=== PATIENT | female | born 1975 | race Caucasian/White ===

== ENCOUNTER → 2023-01-29 11:24 | Outpatient (BNVA) | payer OTHER, SELFPAY | PROVIDERS: PCP Family Medicine; Visit Provider Family Medicine | DX: Z86.79 Personal history of other diseases of the circulatory system (principal); G43.909 Migraine, unspecified, not intractable, without status migrainosus; Z13.6 Encounter for screening for cardiovascular disorders; I10 Essential (primary) hypertension | CPT/HCPCS: 80053; 80061; 83036; 84443; 85025 ==

== ENCOUNTER → 2023-03-01 15:44 | Outpatient (BNVA) | payer OTHER, SELFPAY | PROVIDERS: PCP Family Medicine; Visit Provider Family Medicine | DX: Z01.419 Encounter for gynecological examination (general) (routine) without abnormal findings (principal) | CPT/HCPCS: 87624 ==

== ENCOUNTER 2023-03-06 13:05 | Outpatient (CLI) | payer OTHER, SELFPAY ==
--- NOTE | 2023-03-06 13:12 | MM_ITS ---
WS: [id number] Bilateral screening 3D tomosynthesis digital mammogram, 03/06/2023 Clinical Data: screening Comparison: None. Findings: The breast parenchymal pattern shows fibroglandular tissue. In the central portion of the right breas t 14 cm posterior to the nipple there are clustered calcifications. No spiculated masses or clustered calcifications are seen in the left breast. There are no secondary signs of carcinoma. There are lym ph nodes in both axilla. Impression: 1. Central clustered calcifications in the right breast 14 cm posterior to the nipple and recommend r ight breast ultrasound. 2. Negative left breast. MM/[place] [id number] BIRADS: 0-Incomplete: Need additional imaging evaluation FOLLOW UP: See Report The CAD fruit checker was used.
== END 2023-03-06 13:06 | disposition home or self-care (01) ==
LOC: RAD 13:06
PROVIDERS: PCP Family Medicine; Visit Provider Family Medicine
DX: Z12.31 Encounter for screening mammogram for malignant neoplasm of breast (principal)
CPT/HCPCS: 77063; 77067

== ENCOUNTER 2023-04-04 08:44 | Outpatient (CLI) | payer OTHER, SELFPAY ==
--- NOTE | 2023-04-04 08:57 | US_ITS ---
WS: [id number] Right breast ultrasound, 04/04/2023 Clinical Data: breast mass Comparison: Mammogram, 03/06/2023 Findings: The ultrasound of the right breast revealed no masses. Only normal breast tissue could be seen. The c lustered calcifications were not identified on this examination. Impression: 1. Negative right breast ultrasound. 2. Central right breast calcifications, recommend biopsy. US/US breast RT limited* [id number] BIRADS: 4-Suspicious Finding-Biopsy Should Be Considered FOLLOW UP: See Report
== END 2023-04-04 08:45 | disposition home or self-care (01) ==
PROVIDERS: PCP Family Medicine; Visit Provider Family Medicine
DX: R92.8 Other abnormal and inconclusive findings on diagnostic imaging of breast (principal); R92.1 Mammographic calcification found on diagnostic imaging of breast
CPT/HCPCS: 76642

== ENCOUNTER 2023-05-07 08:06 | Outpatient (CLI) | payer OTHER, SELFPAY ==
--- NOTE | 2023-05-07 08:11 | MM_ITS ---
WS: [id number] ADDITIONAL VIEWS RIGHT MAMMOGRAM WITH DIGITAL BREAST TOMOSYNTHESIS. RIGHT BREAST ULTRASOUND HISTORY: R ABN MAMMO COMPARISON: 03/06/2023 RIGHT MAMMOGRAM: Magnification views and true ML with digital breast tomosynthesis and SM. There is a dense cluster of calcifications in the posterior RIGHT breast just central to the nipple. These are very coarse calcifications with questionable associated soft tissue mass. Favor these are p robably fibroadenoma related. Cluster of calcifications measures 2.0 x 1.0 cm. Ultrasound to be attem pted. RIGHT BREAST ULTRASOUND 2-D and color Doppler imaging submitted. Calcifications are not identified by ultrasound. There is no associated soft tissue mass identified a long the posterior chest wall. IMPRESSION: MM/[place] [id number] BI-RADS: 3-Probably Benign FOLLOW UP: 6 Month Follow-up Strongly favor these calcifications are benign and may be related to a fibroade noma. These calcifications or associated soft tissue masses identified by ultra sound. Suggest 6-month diagnostic mammographic follow-up of the RIGHT breast. T his will be necessary to ensure stability is of these most likely benign calcif ications.
--- NOTE | 2023-05-07 08:46 | US_ITS ---
WS: [id number] ADDITIONAL VIEWS RIGHT MAMMOGRAM WITH DIGITAL BREAST TOMOSYNTHESIS. RIGHT BREAST ULTRASOUND HISTORY: R ABN MAMMO COMPARISON: 03/06/2023 RIGHT MAMMOGRAM: Magnification views and true ML with digital breast tomosynthesis and SM. There is a dense cluster of calcifications in the posterior RIGHT breast just central to the nipple. These are very coarse calcifications with questionable associated soft tissue mass. Favor these are p robably fibroadenoma related. Cluster of calcifications measures 2.0 x 1.0 cm. Ultrasound to be attem pted. RIGHT BREAST ULTRASOUND 2-D and color Doppler imaging submitted. Calcifications are not identified by ultrasound. There is no associated soft tissue mass identified a long the posterior chest wall. IMPRESSION: US/US breast RT limited* [id number] BI-RADS: 3-Probably Benign FOLLOW UP: 6 Month Follow-up Strongly favor these calcifications are benign and may be related to a fibroade noma. These calcifications or associated soft tissue masses identified by ultra sound. Suggest 6-month diagnostic mammographic follow-up of the RIGHT breast. T his will be necessary to ensure stability is of these most likely benign calcif ications.
== END 2023-05-07 08:07 | disposition home or self-care (01) ==
LOC: RAD 08:07
PROVIDERS: PCP Family Medicine; Visit Provider Family Medicine
DX: R92.1 Mammographic calcification found on diagnostic imaging of breast (principal)
CPT/HCPCS: 76642; 77061; G0279

== ENCOUNTER 2023-05-27 18:27 | Inpatient (IN) | payer OTHER, SELFPAY ==
[2023-05-27] VITALS (10 sets, daily range): BP systolic 106–176; BP diastolic 65–101; PULSE 103–130; RESP 16–32; TEMP 37.2; O2SAT 95–100; BMI 42.4
--- NOTE | 2023-05-27 18:38 | ECG_ITS ---
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 Measurements Intervals [place] Rate: 122 P: 55 WV: 140 QRS: 35 QRSD: 85 T: 64 QT: 337 QTc: 481 Interpretive Statements SINUS TACHYCARDIA NONSPECIFIC ST & T-WAVE ABNORMALITY No previous ECG available for comparison Electronically Signed On 05-27-2023 23:51:38 CDT by Avtar Truong M.D. [id number] f
--- NOTE | 2023-05-27 18:42 | W.ED.CHESTPA ---
HPI - Chest Pain General: Chief Complaint: Chest Pain Stated Complaint: Sob chest pressure Time Seen by Provider: 05/27/23 18:37 History of Present Illness: 48-year-old female presents to the emergency department with complaints of chest pain. She recently lost her spouse and has had significant increase in life stressors dealing with her family. Patient states that she started having substernal chest pain that started approximately 1400 this afternoon and is continued since that time. She denies nausea, dizziness or lightheaded feeling. She states she did feel like her heart was racing and skipping beats at that time. She states that she did feel short of breath at that time of her chest pain. She describes her chest pain as a 5 out of 10 at present. She states that nothing seems to make the pain better and nothing seems to make the pain worse. Associated symptoms: Reports dyspnea and palpitations Review of Systems General: Reports: 10 or more systems reviewed and unremarkable except in HPI and below Card: Reports: chest pain and palpitations Resp: Reports: dyspnea; Denies: non-productive cough or wheezing Psych: Reports: anxiety and depression PFSH ED PFSH: Medical History Eczema History of posttraumatic stress disorder (PTSD) History of hypertension History of hemorrhoids History of renal stone x 7 Surgical History Hx of hemorrhoidectomy History of myomectomy History of delivery x 3 Family History Grandfather Diabetes mellitus, type 2 Heart disease Hypertension Grandmother Heart disease Hypertension Father Colon cancer Mother Diabetes Social History Smoking and tobacco/nicotine status: never used tobacco/nicotine Alcohol intake: never Substance/Drug Use: never Household members: spouse Housing: House Marital status: Highest education level completed: Associate Degree: Occupational, Technical, Vocational Program Physical Exam Narrative: EXAM NARRATIVE: Constitutional: the patient appears well nourished and of normal development. Vital signs as documented. No acute distress at present. Alert and oriented-to person, place, time and situation. Head, eyes, ears, nose, mouth, throat: Normocephalic, atraumatic. Pupils-equal, round, reactive to light. No scleral icterus. Normal-appearing external ears. Normal appearing nasal turbinates, no drainage. No obvious oral lesions, posterior oropharynx without erythema or exudates. Neck: Supple, trachea is midline, no lymphadenopathy, no jugular venous distension, thyromegaly, or carotid bruits. Carotid upstrokes are brisk bilaterally. Lungs: clear to auscultation to all lung [place]. Symmetrical rise and fall of chest, no obvious signs of increased work of breathing at present. Cardiac: Sinus tachycardia, positive S1, S2. No murmurs, rubs or gallops that I can appreciate Abdomen: Soft, non-tender to palpation, normal active bowel sounds to all quadrants. No palpable masses, no organomegaly and abdominal bruits. Extremities: 2+ pulses in the upper extremities that are equal bilaterally, 2+ pulses in the lower extremities that are equal bilaterally. Non-edematous. Moves all extremities well, sensation to all extremities are noted. Skin: Warm, dry, intact. Psych: Tearful, anxious, Course Vital Signs: Vital signs: Vital Signs Temperature 98.9 F 05/27/23 18:38 Pulse Rate 118 H 05/27/23 22:00 Respiratory Rate 21 H 05/27/23 22:00 Blood Pressure 141/81 05/27/23 22:00 Pulse Oximetry 97 05/27/23 22:00 Oxygen Delivery Me thod Room Air 05/27/23 21:30 MDM - Chest Pain Medical Decision Making Physical exam completed and documented, I did obtain a CBC and a CMP which were essentially normal, serial cardiac enzymes did demonstrate a 2-hour delta of 14, the patient did receive Ativan, cardiac dose aspirin, nitroglycerin sublingually as well as nitroglycerin paste. Patient was also provided IV bolus heparin as well as a heparin drip and a chest x-ray. I have contacted the hospitalist requested admission and he is excepted the patient for additional evaluation treatment and care. Medical Records I reviewed the patient's medical records. Lab Data I reviewed the patient's lab results. 05/27/23 18:37 05/27/23 18:37 Laboratory Results WBC 8.22 10^3/uL (3.29-11.43) 05/27/23 18:37 RBC 5.12 10^6/uL (3.85-5.65) 05/27/23 18:37 Hgb 15.00 g/dL (11.27-16.99) 05/27/23 18:37 Hct 44.9 % (36-47) 05/27/23 18:37 MCV 87.7 fl (85-98) 05/27/23 18:37 MCH 29.3 pg (27-33) 05/27/23 18: MCHC 33.4 g/dL (30-55) 05/27/23 18:37 RDW 12.4 % (12.1-15.1) 05/27/23 18:37 Plt Count 297 10^3/cmm (157-399) 05/27/23 18:37 MPV 10.0 fL (7.4-10.4) 05/27/23 18:37 Neut % (Auto) 77.7 % 05/27/23 18:37 Lymph % (Auto) 14.5 % 05/27/23 18:37 [place] % (Auto) 5.5 % 05/27/23 18:37 Eos % (Auto) 1.8 % 05/27/23 18:37 Baso % (Auto) 0.4 % 05/27/23 18:37 Neut # (Auto) 6.39 10^3/uL (1.8-7.7) 05/27/23 18: Lymph # (Auto) 1.2 10^3/uL (0.8-4.8) 05/27/23 18:37 [place] # (Auto) 0.5 10^3/uL (0.2-0.9) 05/27/23 18:37 Eos # (Auto) 0.2 10^3/uL (0.0-0.8) 05/27/23 18:37 Baso # (Auto) 0.0 10^3/uL (0.0-0.1) 05/27/23 18: Nucleated RBC % (auto) 0 % 05/27/23 18: Nucleated RBCs # 0.0 /100WBC 05/27/23 18:37 D-Dimer 0.54 ug/mLFEU (0-0.59) 05/27/23 15:39 Sodium 139 mmol/L (136-145) 05/27/23 18:37 Potassium 3.8 mmol/L (3.5-5.1) 05/27/23 18:37 Chloride 102 mmol/L (98-107) 05/27/23 18:37 Carbon Dioxide 23 mmol/L (22-29) 05/27/23 18:37 Anion Gap 17.8 (5-19) 05/27/23 18:37 BUN 13 mg/dL (6-20) 05/27/23 18:37 Creatinine 0.7 mg/dL (0.5-0.9) 05/27/23 18:37 GFR Calculation 89.3 mL/min (90-130) L 05/27/23 18:37 Glucose 200 mg/dL (65-115) H 05/27/23 18:37 Calculated Osmolality 294 mOsm/kg (285-295) 05/27/23 18:37 Calcium 9.9 mg/dL (8.5-10.5) 05/27/23 18:37 Total Bilirubin 0.3 mg/dL (0.15-1.2) 05/27/23 18:37 AST 12 U/L (0-32) 05/27/23 18:37 ALT 16 U/L (0-33) 05/27/23 18:37 Alkaline Phosphatase 95 U/L (35-105) 05/27/23 18:37 Troponin T Baseline 32 ng/L (0-10) H 05/27/23 18:37 Troponin T 120 Minute 46.46 ng/L (0-10) H 05/27/23 20:34 Delta Troponin T 14.46 ABS# (0-10) H* 05/27/23 20:34 NT-Pro-B Natriuret Pep 108 pg/mL (0-125) 05/27/23 18:37 Total Protein 7.7 g/dL (6.6-8.7) 05/27/23 18:37 Albumin 4.4 g/dL (3.5-5.2) 05/27/23 18:37 Globulin 3.3 g/dL (1.3-4.6) 05/27/23 18:37 All radiology interpretation(s) finalized by discharge EKG Data EKG 1: Interpretation: Twelve-lead EKG obtained at 1832 and reviewed at 1835 demonstrates sinus tachycardia with a ventricular rate of 122 bpm, AZ interval 140 QRS duration 85 QT 337 QTc 410. There is no ST elevation or depression to demonstrate acute ischemia or infarction at present. EKG 2: Interpretation: Twelve-lead EKG obtained at 2036 and reviewed at 2039 demonstrates sinus tachycardia with a ventricular rate of 117 bpm, AZ interval 156 QRS duration 102, QT 333, QTc [address] elevation or depression to demonstrate acute ischemia or infarction at present. Discharge Plan Discharge Patient Disposition: Admitted As Inpatient Clinical Impression: Acute non-ST elevation myocardial infarction (NSTEMI) Condition: Stable Coding Level of Care Code ED Utilization Management Manager for Joi Kelley
[2023-05-27 18:45] LABS: Basophils % 0.4 %; Eosinophils # 0.2 10^3/uL (0.0-0.8); Eosinophils % 1.8 %; Hematocrit 44.9 % (36-47); Lymphocytes # 1.2 10^3/uL (0.8-4.8); Lymphocytes % 14.5 %; Mean Corpuscular HGB Conc 33.4 g/dL (30-55); Mean Corpuscular Hemoglobin 29.3 pg (27-33); Mean Corpuscular Volume 87.7 fl (85-98); Monocytes # 0.5 10^3/uL (0.2-0.9); Monocytes % 5.5 %; Neutrophils # 6.39 10^3/uL (1.8-7.7); Neutrophils % 77.7 %; Nucleated Red Blood Cells % 0 %; Platelet Count 297 10^3/cmm (157-399); Red Blood Count 5.12 10^6/uL (3.85-5.65); Red Cell Distribution Width 12.4 % (12.1-15.1); White Blood Count 8.22 10^3/uL (3.29-11.43)
[2023-05-27] MEDS: aspirin 81 mg Chew Tablet 324 MG PO (18:58)
[2023-05-27] MEDS: LORazepam 2 mg/mL INJ 10 mL MDV 1 MG IVP (19:02)
[2023-05-27 19:05] LABS: Troponin(5th) Baseline 32 ng/L (0-10)
[2023-05-27 19:26] LABS: Alanine Aminotransferase 16 U/L (0-33); Albumin Level 4.4 g/dL (3.5-5.2); Alkaline Phosphatase 95 U/L (35-105); Aspartate Amino Transferase 12 U/L (0-32); Blood Urea Nitrogen 13 mg/dL (6-20); Calcium 9.9 mg/dL (8.5-10.5); Carbon Dioxide 23 mmol/L (22-29); Chloride 102 mmol/L (98-107); Creatinine Clr Calc Pharmacy 120.4572; Globulin 3.3 g/dL (1.3-4.6); Glomerular Filtration Rate 89.3 mL/min (90-130); Glucose 200 mg/dL (65-115); NT Pro B Type Natriuretic Pept 108 pg/mL (0-125); Osmolality Calculated 294 mOsm/kg (285-295); Sodium 139 mmol/L (136-145); Total Bilirubin 0.3 mg/dL (0.15-1.2); Total Protein 7.7 g/dL (6.6-8.7)
[2023-05-27] MEDS: nitroglycerin 1 gm/inch oint Pkt 2 INCH TOPICAL (19:31)
[2023-05-27 19:32] LABS: Anion Gap 17.8 (5-19); Potassium 3.8 mmol/L (3.5-5.1)
[2023-05-27] MEDS: nitroglycerin 0.4 mg sublingual Tablet 0.400000000000000022 MG SUBLINGUAL (19:33)
--- NOTE | 2023-05-27 20:37 | ECG_ITS ---
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 Measurements Intervals [place] Rate: 117 P: 38 IA: 156 QRS: 41 QRSD: 102 T: 73 QT: 333 QTc: 465 Interpretive Statements SINUS TACHYCARDIA NONSPECIFIC ST & T-WAVE ABNORMALITY ABNORMAL RHYTHM ECG Compared to ECG 05/27/2023 18:32:38 No significant changes Electronically Signed On 05-27-2023 23:57:24 CDT by Avtar Truong M.D. [id number]
[2023-05-27 21:15] LABS: D Dimer 0.54 ug/mLFEU (0-0.59)
[2023-05-27 21:27] LABS: Troponin 5 2HR 46.46 ng/L (0-10)
[2023-05-27 21:29] LABS: Troponin 5 2HR Delta 14.46 ABS# (0-10)
[2023-05-27] MEDS: heparin 5,000 unit/mL INJ 1 mL 4000 UNIT IVP (21:48)
[2023-05-27] MEDS: heparin drip 25,000 UNIT/500 ML PREMIX 31.370000000000001 UNIT IV (21:52)
--- NOTE | 2023-05-27 22:11 | P.HP_ITS ---
Providers/Chief Complaint 2 Primary Care Provider: Aleyda Moralez DO Chief Complaint: Sob chest pressure History of Present Illness Ayanna Gregory is a 48 year old female with history of dyslipidemia, cholesteatoma, hypertension, presented to hospital with chief complaint of chest pain. Patient's in this hospital 3 weeks ago,( I took care of her ). Patient is stating that she is under a lot of stress, her 's family is claiming all the assets and she is not able to continue conversation with them anymore that is causing a lot of stress on her. Today around 2 PM she started experiencing chest pain which lasted about 3 minutes she describing that episode as pressure-like sensation, substernal, it appeared again around 6 PM that prompted her visit to the ER. She never had any diagnosis of CHF, coronary disease. No history of diabetes. No history of family history of coronary disease At the time of my evaluation she is chest pain-free, delta troponin is 14, she is tachycardic request D-dimer I removed Nitropaste, BNP is 180, EKG showing sinus tachycardia Patient has been giving Ativan as well she appears anxious She has been started on heparin drip she has been loaded with aspirin I will give her Plavix loading dose as well Patient works full-time at [employer] Review of Systems 2 Const: Denies: fever(s) Eyes: Denies: eye discomfort ENMT: Denies: throat pain Card: Reports: chest pain Resp: Denies: dyspnea GI: Denies: abdominal pain : Denies: flank pain Musc: Denies: neck pain Skin/Breast: Denies: rash Neuro: Denies: headache(s) Psych: Reports: anxiety Endo: Denies: polyuria Medications/Allergies Home Medications Medication Instructions Recorded Confirmed Last Taken Type sumatriptan succinate 100 mg See Rx Instructions PO .COMPLEX #9 01/29/23 03/01/23 Unknown Rx tablet (Imitrex) tabs lisinopril 10 mg tablet 10 mg PO DAILY #90 tabs 03/01/23 03/01/23 Unknown Rx fluconazole 150 mg tablet 150 mg PO Q3D 2 doses #2 tabs 03/07/23 Unknown Rx Allergies Allergy/AdvReac Type Severity Reaction Status Date / Time No Known Allergies Allergy Verified 05/27/23 18:40 PFSH Acute 2 PFSH: Medical History Eczema History of posttraumatic stress disorder (PTSD) History of hypertension History of hemorrhoids History of renal stone x 7 Surgical History Hx of hemorrhoidectomy History of myomectomy History of delivery x 3 Family History Grandfather Diabetes mellitus, type 2 Heart disease Hypertension Grandmother Heart disease Hypertension Father Colon cancer Mother Diabetes Social History Smoking and tobacco/nicotine status: never used tobacco/nicotine Alcohol intake: never Substance/Drug Use: never Household members: spouse Housing: House Marital status: Highest education level completed: Associate Degree: Occupational, Technical, Vocational Program Vitals/I&O/Wt Last Vital Signs Temp 98.9 F 05/27/23 18:38 Pulse 118 H 05/27/23 22:00 Resp 21 H 05/27/23 22:00 BP 141/81 05/27/23 22:00 Pulse Ox 97 05/27/23 22:00 O2 Del Method Room Air 05/27/23 21:30 Weight last 48 hrs Weight 112.037 kg Physical Exam 2 Narrative: Patient is chest pain free Hemodynamically stable Tachycardic Currently on room air Emotional labile Morbid obesity Abdomen distended nontender S1, S2 sinus tachycardia Nonfocal neuroexam NIH 0 Cholesteatoma noted Data 05/27/23 18:37 05/27/23 18:37 A&P Assessment and plan (1) Benign essential HTN: (2) Acute non-ST elevation myocardial infarction (NSTEMI): (3) Migraine headache: Qualifiers: Migraine type: menstrual Status migrainosus presence: without status migrainosus Intractability: not intractable Qualified Code(s): G43.829 - Menstrual migraine, not intractable, without status migrainosus Plan Non-STEMI Requested echo Load with Plavix and aspirin and high-dose statins Start heparin drip Echo requested Please call cardiology in the morning, she will likely benefit from an angiogram I have removed her Nitropaste, chest pain-free, will keep her n.p.o. after midnight in case angiogram is planned for tomorrow Cholesteatoma noted: Add high-dose atorvastatin considering non-STEMI Sinus tachycardia: Check D-dimer, Full code Check TSH, B12, BNP, Attestations 2 Medical Necessity Statement*: More than 2 midnights anticipated Diagnoses Benign essential HTN I10 Acute non-ST elevation myocardial infarction (NSTEMI) I21.4 Menstrual migraine without status migrainosus, not intractable G43.829 Migraine type: menstrual Status migrainosus presence: without status migrainosus Intractability: not intractable
[2023-05-27] MEDS: clopidogrel 300 mg Tablet PO (23:57)
[2023-05-28] VITALS (29 sets, daily range): BP systolic 114–164; BP diastolic 70–130; PULSE 84–108; RESP 16–38; TEMP 36.6–36.9; O2SAT 92–98
[2023-05-28] MEDS: metoprolol tartrate 25 mg Tablet 12.5 MG PO ×2 (00:02→11:08)
[2023-05-28 00:18] LABS: Estmated Average Glucose 111; Hemoglobin A1C 5.5 % (4.0-6.0)
[2023-05-28 01:09] LABS: Thyroid Stimulating Hormone 2.13 uIU/mL (0.27-4.20); Vitamin B12 222 pg/mL (232-1245)
[2023-05-28] MEDS: heparin drip 25,000 UNIT/500 ML PREMIX 31.370000000000001 UNIT IV (02:13)
[2023-05-28 02:15] LABS: Troponin 5 6HR 56.29 ng/L (0-10)
[2023-05-28 02:26] LABS: Troponin 5 6HR Delta 24.29 ng/L (0-12)
[2023-05-28 04:18] LABS: Basophils % 0.6 %; Eosinophils # 0.2 10^3/uL (0.0-0.8); Eosinophils % 2.2 %; Hematocrit 41.9 % (36-47); Lymphocytes # 1.3 10^3/uL (0.8-4.8); Lymphocytes % 17.9 %; Mean Corpuscular HGB Conc 32.9 g/dL (30-55); Mean Corpuscular Hemoglobin 29.3 pg (27-33); Mean Platelet Volume 9.8 fL (7.4-10.4); Monocytes # 0.8 10^3/uL (0.2-0.9); Monocytes % 10.6 %; Neutrophils # 4.95 10^3/uL (1.8-7.7); Neutrophils % 68.3 %; Nucleated Red Blood Cells % 0 %; Platelet Count 284 10^3/cmm (157-399); Red Blood Count 4.71 10^6/uL (3.85-5.65); Red Cell Distribution Width 12.5 % (12.1-15.1); White Blood Count 7.25 10^3/uL (3.29-11.43)
[2023-05-28 04:23] LABS: Partial Thromboplastin Time 56.4 SECONDS (23.9-36.7)
[2023-05-28 04:32] LABS: Anion Gap 14.2 (5-19); Blood Urea Nitrogen 13 mg/dL (6-20); Calcium 9.7 mg/dL (8.5-10.5); Carbon Dioxide 22 mmol/L (22-29); Chloride 106 mmol/L (98-107); Creatinine Clr Calc Pharmacy 146.4867; Glomerular Filtration Rate 106.7 mL/min (90-130); Glucose 113 mg/dL (65-115); Magnesium 2.2 mg/dL (1.7-2.3); Osmolality Calculated 287 mOsm/kg (285-295); Phosphorus 4.8 mg/dL (2.5-4.5); Potassium 4.2 mmol/L (3.5-5.1); Sodium 138 mmol/L (136-145)
--- NOTE | 2023-05-28 07:00 | P.CONIM_ITS ---
Providers/Reason For Consult 2 Consulting Physician/Specialty*: Avtar Truong MD/ Cardiology Reason for Consult*: NSTEMI Requesting Physician: Dr Salgado Attending Physician: Marina Salgado MD Primary Care Provider: Aleyda Moralez DO History of Present Illness History of Present Illness Ayanna Gregory is a 48 year old female with past medical history of hypertension and hyperlipidemia who presented to hospital with episodes of chest pain. Her few weeks ago. She states around 2 PM yesterday she had episode of substernal chest pressure. It resolved in a few minutes. Then it happened again at 6 PM. Her initial troponin was 32 that trended up to 56 at 6 hours. EKG shows sinus tachycardia. No significant ST-T wave changes Review of Systems 2 Const: Denies: fever(s) Eyes: Denies: eye discomfort ENMT: Denies: throat pain Card: Reports: chest pain Resp: Denies: dyspnea GI: Denies: abdominal pain : Denies: flank pain Musc: Denies: neck pain Skin/Breast: Denies: rash Neuro: Denies: headache(s) Psych: Reports: anxiety Endo: Denies: polyuria Medications/Allergies Home Medications Medication Instructions Recorded Confirmed Last Taken Type sumatriptan succinate 100 mg See Rx Instructions PO .COMPLEX #9 01/29/23 05/28/23 Unknown Rx tablet (Imitrex) tabs lisinopril 10 mg tablet 10 mg PO DAILY #90 tabs 03/01/23 05/28/23 1 Day Ago Rx ~05/27/23 Allergies Allergy/AdvReac Type Severity Reaction Status Date / Time No Known Allergies Allergy Verified 05/27/23 18:40 Current Medications Generic Name Dose Route Start Last Admin Trade Name Freq PRN Reason Stop Dose Admin Heparin Sodium/Sodium Chloride 25,000 unit in 500 mls @ 0 mls/hr 05/28/23 01:00 05/28/23 02:13 Heparin Drip IV 14 unit/kg/hr .Q0M MARLENY 31.37 mls/hr Administration Protocol Per Protocol Metoprolol Tartrate 12.5 mg 05/27/23 23:29 05/28/23 00:02 Metoprolol Tartrate 25 Mg Tablet PO 12.5 mg BID@0900,2100 MARLENY Administration PFSH Acute 2 PFSH: Medical History Eczema History of posttraumatic stress disorder (PTSD) History of hypertension History of hemorrhoids History of renal stone x 7 Surgical History Hx of hemorrhoidectomy History of myomectomy History of delivery x 3 Family History Grandfather Diabetes mellitus, type 2 Heart disease Hypertension Grandmother Heart disease Hypertension Father Colon cancer Mother Diabetes Social History Smoking and tobacco/nicotine status: never used tobacco/nicotine Alcohol intake: never Substance/Drug Use: never Household members: spouse Housing: House Marital status: Highest education level completed: Associate Degree: Occupational, Technical, Vocational Program Vitals/I&O/Wt Last Vital Signs Temp 98.5 F 05/28/23 00:52 Pulse 88 05/28/23 05:15 Resp 18 05/28/23 04:30 BP 125/75 05/28/23 04:30 Pulse Ox 97 05/28/23 04:30 O2 Del Method Room Air 05/28/23 00:51 05/27/23 05/28/23 05/28/23 22:59 06:59 14:59 Intake Total 256.46 / 256.46 Balance 256.46 / 256.46 Weight last 48 hrs Weight 265 lb 2 oz Weight 265 lb 8 oz Weight 247 lb Physical Exam 2 Narrative: GENERAL: Patient is alert, awake and oriented x3. [] NECK: No jugular vein distension. [] HEENT: No cyanosis. No icterus. No pallor. [] HEART: Regular S1 and S2. No murmur, rub or gallop. [] LUNGS: Clear to auscultate bilaterally. [] CENTRAL NERVOUS SYSTEM: Grossly nonfocal. [] EXTREMITIES: Lower extremities with 1+ edema bilaterally. Data 05/29/23 03:10 05/29/23 03:10 A&P Assessment and plan (1) Acute non-ST elevation myocardial infarction (NSTEMI): (2) Benign essential HTN: Plan Patient has presented with typical chest pain symptoms. Troponins have trended up significantly. Findings are consistent with non-ST elevation [place]. Will proceed with coronary angiogram with possible percutaneous coronary intervention. Risks and benefits of the procedure have been discussed. Keep NPO. Order echocardiogram. Thank you for involving us with care of this patient. We will continue to follow. Please call with questions. Consult Attestations 2 Medical Necessity Statement: Care expected to cross 2 midnights. Coding Level of Care Code Acute Code for [facility] Fwd Diagnoses Acute non-ST elevation myocardial infarction (NSTEMI) I21.4 Benign essential HTN I10
--- NOTE | 2023-05-28 07:21 | XACV_ITS ---
Exam Room: [facility] Ht: 163 cm Wt: 120 kg BSA: 2.40 m2 Gender: Female : 1975 Any Known Allergies: No known allergies Exam Priority: Routine Procedure(s): Procedure Description: Diagnostic procedure Procedure Description: PCI procedure Procedure Description: Left Heart Catheterization Procedure Description: Coronary IVUS Procedure Description: Drug Eluting Coronary Stent Procedure Description: PTCA Procedure Description: Coronary Atherectomy Procedure Description: Miscellaneous Procedure Description: Angio-Seal Procedure Description: ACT Procedure Description: Coronary Angiography Diagnostic Cath Status: Urgent Diagnostic Findings * Left Main has no significant disease. * Circumflex has mild luminal irregularities. * Proximal Left Anterior Descending: critical heavily calcified 95% stenosis, THU: 3 flow. * Mid Left Anterior Descending: severe, heavily calcified 90% stenosis, THU: 3 flow. * RCA is a large vessel and is patent. Posterior Descending artery in distal segment is subtotal occluded. Supplies a small area. * Coronary angiography shows right dominance. PCI Status: Urgent PCI Indication: NSTE - ACS Interventional Findings * Procedure detail: We briefly attempted to cross distal PDA lesion with a wire however it was subtotally occluded and wire could not cross. As it was supplying small area, decision made to medically treat it. We then turned our attention to LAD. We engaged the left main artery with XB 3.5 guide catheter. We crossed the severe stenoses with a 0.014 run-through guidewire. Over the wire TelePort microcatheter was advanced into distal vessel. We switched run-through wire to Viper arthrectomy wire. We then performed several runs of orbital arthrectomy starting from proximal to mid LAD. Post arthrectomy we lost blood flow in the vessel. We switched Viper wire to run-through guidewire through TelePort catheter. We then dilated the artery with 2.5 x 30 mm semicompliant balloon. This restored blood flow. We then performed IVUS to size the vessel. We placed 2.5 x 26 mm resolute Radha drug-eluting stent in the mid LAD. We overlapped it with a 3.0 x 30 mm resolute [place] drug-eluting stent from proximal to mid LAD. Areas of underexpansion were noted on post IVUS. We postdilated stents with 3.0 x 20 mm NC balloon. At this time final angiogram was performed that showed excellent stent expansion, no residual stenosis THU-3 flow. Guidewire and guide catheter were removed. 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 . * Proximal Left Anterior Descendin% stenosis treated with a MDT R RADHA 3.0X34 JULIANNA, and MDT NC EUPHORA RX [id number] BALLOON. 0% residual stenosis, THU: 3 flow. * Mid Left Anterior Descendin% stenosis treated with a AB TREK 2.50X30 RX BALLOON, MDT R RADHA 2.5X26 JULIANNA, and MDT NC EUPHORA RX 3.26X29NP BALLOON. 0% residual stenosis, THU: 3 flow. Conclusions 1. Critical proximal and mid LAD heavily calcified stenosis s/p successful revascularization with orbital arthrectomy and 2 stents.. 2. Subtotal occlusion of distal PDA. Supplies small area. The lesion could not be wired. Given size of the artery, medical therapy. 3. Proximal Left Anterior Descending was treated with a Drug Eluting Stent, and Balloon. 4. Mid Left Anterior Descending was treated with a Balloon, Drug Eluting Stent, and Balloon. Recommendations * Dual antiplatelet therapy with aspirin and plavix for atleast 1 year. * High intensity statin therapy. * Outpatient cardiology follow up in 4 weeks. Interventional RX Recommendation: PCI w/o planned CABG Diagnostic RX Recommendation: PCI w/o planned CABG Anticoagulation: Heparin Pressures Phase:Rest AO : 154 / 92 ( 116 ) @ 9:08:00 AM 137 / 94 ( 111 ) @ 9:10:00 AM 139 / 94 ( 114 ) @ 9:13:00 AM 117 / 87 ( 101 ) @ 9:16:00 AM 141 / 79 ( 106 ) @ 9:20:00 AM 142 / 79 ( 106 ) @ 9:20:00 AM 157 / 108 ( 130 ) @ 9:31:00 AM 138 / 112 ( 125 ) @ 9:38:00 AM 161 / 111 ( 133 ) @ 9:42:00 AM 144 / 112 ( 127 ) @ 9:54:00 AM 139 / 113 ( 126 ) @ 9:55:00 AM 146 / 125 ( 136 ) @ 9:57:00 AM 145 / 119 ( 132 ) @ 10:03:00 AM 166 / 115 ( 138 ) @ 10:09:00 AM 169 / 116 ( 141 ) @ 10:19:00 AM 148 / 102 ( 123 ) @ 10:25:00 AM LV : 138 / -16 / 14 @ 9:20:00 AM 135 / -20 / 8 @ 9:20:00 AM Valves Phase:DefaultPhase AV : 0.0 @ 9:47:38 AM 0.0 @ 9:47:38 AM AV Mean Gradient: 0.0 @ 9:47:38 AM 0.0 @ 9:47:38 AM Clinical Evaluation EBL: 5mL-10mL Procedural Details Procedure Consent Obtained. Current Diagnosis : NSTEMI. Pre-Procedure Time Out. Identified patient by full name and date of as verbalized by the patient/guarantor. Does the consent match the physician's order: Yes. Accurate & Complete Informed Consent: Yes. Inpatient/Outpatient History & Physical on Chart: Yes. If H&P is completed, is and addenduem needed: No; If yes, is the addendum complete: N/A. Visualize and Verify Site with Patient/Guarantor: N/A. Relevant Radiology Images available: Yes. Pre-op teaching completed and patient verbalized understanding. The risks, benefits, and alternatives of sedation and/or procedure were discussed by physician. The patient agrees to continue. Procedure started. [facility] Clinical Fraility Score: 4: Vulnerable. 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 Chest Pain Symptom Assessment: Typical Angina Symptoms. Correct patient, site and procedure confirmed by cath team. Current diagnosis: NSTEMI. PERRLA. Strong, equal hand soil science technical officer bilaterally. Lungs clear x 5 lobes. IV Site on Arrival: 18 gauge in the right anticubital. IV Fluids: 0.9% NaCl at KVO. 0 mL infused prior to pathology laboratory aides teacher. Oxygen started at 2liters/min via nasal canula. right groin was prepped with chloroprep then draped in the usual sterile fashion. right radial was prepped with chloroprep then draped in the usual sterile fashion. Baseline sample Acquired. HR: 100 BPM. Physician arrived. Physician scrubbed in. Immediate Pre-Procedure Time Out. Correct Patient: Yes; Correct Procedure: Yes; Correct Site: Yes; Correct Patient Position: Yes; Correct Supplies: Yes; Dried Flammable Prep: Yes; Blood Products Available: N/A;. Lidocaine 1% infiltrated to the right radial. Arterial access obtained. Wire unable to advance. Wire and needle removed. Unable to obtain radial access. MD attempting to gain access in the Femoral artery. Lidocaine 1% infiltrated to the right groin. Arterial access obtained with micropuncture set. A 5 [place] JL4 catheter in over wire. Catheter removed over the exchange wire. A 6 [place] JL4.5 catheter in over wire. Multiple views taken of left coronary artery. Catheter removed over the standard wire. A 5 [place] JR4 catheter in over wire. Multiple views taken of right coronary artery. Catheter removed over the standard wire. A 5 [place] Angled Pig catheter in over wire. EDP Sample taken: LV 135/-21,8; HR: 96 BPM; SpO2: 98%. Pullback taken: LV 138/-17,14; AO 142/79(106); Mean: 0mmHg, Peak to Peak: 0mmHg, SEP: 18sec/min; HR: 94 BPM; SpO2: 98%. Catheter removed over the standard wire. ACT drawn. Results 148 seconds. Therapeutic limits - pre-heparin administration 90-150 seconds and monitoring heparin during a vascular procedure >250 seconds. 6 [place] JR 4 guide catheter was inserted over the wire. Runthrough guidewire was advanced through the guide catheter to lesion in the PDA. Wire out. Guide catheter out. ACT drawn. Results 288 seconds. Therapeutic limits - pre-heparin administration 90-150 seconds and monitoring heparin during a vascular procedure >250 seconds. 6 [place] XB 3.5 guide catheter was inserted over the wire. 300cm Runthrough guidewire was advanced through the guide catheter to lesion in the mid LAD. Teleport catheter inserted OTW and advanced to the LAD. Runthrough wire removed. Viperwire inserted through the Teleport catheter. Teleport catheter removed OTW. 1.25 CSI coronary athrectomy kyra inserted and advanced OTW. [place] tested outside of the body before being advanced to the LAD. Orbital athrectomy performed in the LAD. Results checked. Orbital athrectomy performed in the LAD. Kyra removed OTW. Teleport catheter removed OTW. Viperwire removed. 300cm Runthrough wire out. Teleport catheter removed OTW. 2.5x30mm balloon inserted and advanced OTW. Inflation number : 1 A AB TREK 2.50X30 RX BALLOON was prepped and advanced across the Mid LAD , then inflated to 8 ROLANDO for 0:18 seconds. Inflation number: 2 The AB TREK 2.50X30 RX BALLOON was reinflated across the Mid LAD, to 8 ROLANDO for 0:14 seconds. Inflation number: 3 The AB TREK 2.50X30 RX BALLOON was reinflated across the Mid LAD, to 8 ROLANDO for 0:13 seconds. Inflation number: 4 The AB TREK 2.50X30 RX BALLOON was reinflated across the Mid LAD, to 10 ROLANDO for 0:14 seconds. Balloon out. Results checked. IVUS catheter inserted OTW and advanced to the LAD. IVUS measurements obtained. IVUS catheter out OTW. Inflation Number : 5 A LEONARDO Wong RADHA 2.5X26 JULIANNA -Lot Number# _[id number] EXP: 11/29/2023 was prepped and advanced across the Mid LAD. The stent was deployed at 12 ROLANDO for 0:18 seconds. Stent balloon out over wire. Results checked. Inflation Number : 1 A MDT R RADHA 3.0X34 JULIANNA -Lot Number# _[id number] EXP: 07/13/2024 was prepped and advanced across the Prox LAD. The stent was deployed at 12 ROLANDO for 0:27 seconds. Stent balloon out over wire. Results checked. IVUS catheter inserted and advanced to the LAD. Measurements obtained. IVUS catheter out OTW. Inflation number : 6 A MDT NC EUPHORA RX [id number] BALLOON was prepped and advanced across the Mid LAD , then inflated to 12 ROLANDO for 0:17 seconds. Inflation number: 7 The MDT NC EUPHORA RX [id number] BALLOON was reinflated across the Mid LAD, to 16 ROLANDO for 0:09 seconds. Inflation number: 2 The MDT NC EUPHORA RX [id number] BALLOON was reinflated across the Prox LAD, to 18 ROALNDO for 0:12 seconds. Inflation number: 3 The MDT NC EUPHORA RX 3.95X98NO BALLOON was reinflated across the Prox LAD, to 18 ROLANDO for 0:09 seconds. Balloon out. Results checked. ACT drawn. Results out of range high seconds. Therapeutic limits - pre-heparin administration 90-150 seconds and monitoring heparin during a vascular procedure >250 seconds. Wire out. Results checked. Guide catheter out. A Right femoral angiogram was performed to determine safe placement of closure device. ACT drawn. Results 264 seconds. Therapeutic limits - pre-heparin administration 90-150 seconds and monitoring heparin during a vascular procedure >250 seconds. A Angio-Seal VIP ([place]) was successful obtaining hemostatsis at the Right Femoral artery insertion site. Post Procedure: Pulses reassessed and unchanged. PERRLA. Strong, equal hand soil science technical officer bilaterally. No VTE prophylaxis required. Medication's Wasted: Heparin = 3000 units. Medication's Wasted: Other = Versed 1 mg. Medication's Wasted: Nitro = 49.8 mg. Total IV fluids: 130 mL. Complications: None. Estimated blood loss: 5mL-10mL. Responsiveness - Normal response to verbal stimuli; alert and oriented, PERRLA. Airway - Unaffected, no intervention required; spontaneous ventilation. Circulation: W/N/L, pulses unchanged. Nausea/Vomiting: No. Procedure completed. Vital chart was stopped. Patient transferred by bed to CPRU. Access Site Site: Right Femoral artery Sheath Size: 6 Fr Hemostasis Method: Angio-Seal VIP ([place]) Hemostasis Success: Successful Procedure Medications Start: 7:52 AM Stop: 7:52 AM Medication: Versed Amount: 1 mg Route: I.V. Start: 7:53 AM Stop: 7:53 AM Medication: Fentanyl Amount: 25 mcg Route: I.V. Start: 7:53 AM Stop: 7:53 AM Medication: Benadryl Amount: 25 mg Route: I.V. Start: 8:07 AM Stop: 8:07 AM Medication: Fentanyl Amount: 25 mcg Route: I.V. Start: 8:21 AM Stop: 8:21 AM Medication: Heparin Amount: 6000 units Route: I.V. Start: 8:24 AM Stop: 8:24 AM Medication: Versed Amount: 1 mg Route: I.V. Start: 8:25 AM Stop: 8:25 AM Medication: Heparin Amount: 3000 units Route: I.V. Start: 8:39 AM Stop: 8:39 AM Medication: Heparin Amount: 1000 units Route: I.V. Start: 8:46 AM Stop: 8:46 AM Medication: Versed Amount: 1 mg Route: I.V. Start: 8:49 AM Stop: 8:49 AM Medication: Fentanyl Amount: 25 mcg Route: I.V. Start: 9:01 AM Stop: 9:01 AM Medication: Heparin Amount: 1000 units Route: I.V. Start: 9:04 AM Stop: 9:04 AM Medication: Fentanyl Amount: 25 mcg Route: I.V. Start: 9:05 AM Stop: 9:05 AM Medication: Versed Amount: 1 mg Route: I.V. Start: 9:08 AM Stop: 9:08 AM Medication: Heparin Amount: 1000 units Route: I.V. Start: 9:21 AM Stop: 9:21 AM Medication: Heparin Amount: 1000 units Route: I.V. Start: 9:30 AM Stop: 9:30 AM Medication: Plavix Amount: 300 mg Route: P.O. Start: 9:30 AM Stop: 9:30 AM Medication: Aspirin Amount: 81 mg Route: P.O. Start: 9:25 AM Stop: 9:25 AM Medication: Nitrogylcerin Amount: 200 mcg Route: I.C. I, the attending physician, have reviewed and verified all procedure medications. Yes, all medications given per verbal order History/Risk Factors Hypertension: Yes Dyslipidemia: Yes Peripheral Arterial Disease (PAD): No Myocardial Infarction (MN): No Obesity: No Renal Disease: No Tobacco Use: Never Prior Interventions PCI: No CABG: No Valve Surgery: No Report Signatures Finalized by Avtar Truong MD on 06/03/2023 09:52 AM
--- NOTE | 2023-05-28 07:52 | W.PM.OPSUD ---
Surgery/Procedure H&P Update DATE OF PROCEDURE: May 28, 2023 DATE H&P PERFORMED: 05/28/23 H&P UPDATE INFORMATION: I have reviewed H&P completed within last 30 days, I have examined patient prior to procedure and No changes to prior documentation PREOP DIAGNOSIS: NSTEMI PRIMARY INDICATION FOR PROCEDURE: NSTEMI PLANNED PROCEDURE: Left heart cath with possible percutaneous coronary intervention PATIENT REASSESSED PRIOR TO SEDATION, WITH NO CHANGE NOTED: Yes PHYSICAL EXAM: alert, oriented x 3, clear to auscultation bilaterally and regular rate & rhythm AIRWAY EVAL/ANESTHESIA PLAN: normal airway, ASA III, Local Anesthesia, Risks, benefits & alternatives of sedation and/or procedure discussed and Patient agrees to continue as planned
--- NOTE | 2023-05-28 09:00 | USCV_ITS ---
Ayanna Gregory Age: 48 Gender: F : 1975 Exam Date: 05/28/2023 13:57 Ordering Phys: Marina Salgado MD Technologist: Exam Location: [facility] [place] Indication: nstemi BP: 159 / 981 HR: 66 Rhythm: Sinus Technical Quality: Adequate MEASUREMENTS (Male / Female) Normal Values 2D ECHO LV Diastolic Diameter PLAX 3.1 cm 4.2 - 5.9 / 3.9 - 5.3 cm IVS Diastolic Thickness 1.6 cm 0.6 - 1.0 / 0.6 - 0.9 cm IVS Systolic Thickness 1.8 cm LVPW Diastolic Thickness 1.4 cm 0.6 - 1.0 / 0.6 - 0.9 cm LVPW Systolic Thickness 2.0 cm LVOT Diameter 2.0 cm LV Ejection Fraction 2D Teich 67.4 % LV Ejection Fraction MOD 2C 63.1 % LV Ejection Fraction 2C AL 64.4 % LA Diameter 2.8 cm Aorta at Sinotubular Diameter 2.5 cm M-MODE LA Ao Ratio MM 1.0 AV Cusp Separation MM 2.4 cm DOPPLER AV Peak Velocity 109.0 cm/s AV Area Cont Eq vti 2.7 cm squared AV Area Cont Eq pk 2.6 cm squared MV Peak Velocity 104.0 cm/s MV Area PHT 7.2 cm squared Mitral E to A Ratio 0.5 TV Peak Velocity 150.5 cm/s TR Peak Velocity 173.0 cm/s TR Peak Gradient 12.0 mmHg TV Peak E Velocity 84.0 cm/s Right Atrial Pressure 3.0 mmHg Pulmonary Artery Systolic Pressu 15.0 mmHg PV Peak Velocity 82.0 cm/s FINDINGS Left Ventricle Normal left ventricular size and systolic function, EF 63%.mild left ventricular hypertrophy. Right Ventricle The right ventricle is normal in size and function. Right Atrium The right atrium is normal in size. Left Atrium The left atrium is normal in size. Mitral Valve No gross abnormalities noted Aortic Valve No gross abnormalities noted Tricuspid Valve Trace tricuspid valve regurgitation. Pulmonic Valve Pulmonic valve not well visualized. Pericardium Normal pericardium without effusion. Aorta Normal ascending aorta dimension. IVC The inferior vena cava appears normal. CONCLUSIONS Normal left ventricular size and systolic function, EF 63%. Mild left ventricular hypertrophy. No Gross wall motion abnormalities Trace tricuspid valve regurgitation. There is no pericardial effusion. There are no intracardiac masses. No similar previous studies are available for comparison Dr Josie Garcia MD [facility] (Electronically Signed) Final Date: 28 May 2023 20:53 S
--- NOTE | 2023-05-28 09:45 | SUR.PHASEI ---
POST CATH NOTE Received patient from the supervisor laboratory. Status post cardiac catheterization via the right femoral approach. Site closed post cath with angioseal- hemostatic at this time. No hematoma formation noted. Family at bedside. Dr Truong in to discuss findings with them. Vitals and assessments per flowsheets IV fluids set at 75 ml/hr post cath per verbal order from Dr Truong. Call light placed within reach. Informed to call for needs.
--- NOTE | 2023-05-28 10:55 | PC.NURSE ---
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 She had 2 stents placed and has an angioseal.
[2023-05-28] MEDS: aspirin 81 mg EC Tablet PO (11:07)
[2023-05-28] MEDS: atorvastatin 40 mg Tablet 80 MG PO (11:08)
[2023-05-28] MEDS: lisinopril 10 mg Tablet PO (11:08)
[2023-05-28] MEDS: sennosides-docusate Tablet 1 TAB PO (11:09)
--- NOTE | 2023-05-28 13:18 | P.PN_ITS ---
Subjective 2 Subjective: Ayanna reports she is doing okay after her angiogram. She denies any chest pain. Earlier this morning, secondary to her history and angiogram was performed. This demonstrated significant coronary disease and after an atherectomy 2 drug-eluting stents were placed in the LAD. PDA had some disease as well which will be treated medically. Medications: Reviewed: Yes Vitals/I&O/Wt Last Vital Signs Temp 97.9 F 05/28/23 07:40 Pulse 102 H 05/28/23 11:47 Resp 26 H 05/28/23 11:47 BP 143/93 05/28/23 11:47 Pulse Ox 98 05/28/23 11:47 O2 Del Method Room Air 05/28/23 11:51 05/27/23 05/28/23 05/28/23 22:59 06:59 14:59 Intake Total 256.46 / 256.46 120 / 120 Balance 256.46 / 256.46 120 / 120 Weight last 48 hrs Weight 120.259 kg Weight 120.429 kg Weight 112.037 kg Physical Exam 2 Narrative: General exam no distress Neck is supple Cardiovascular regular rhythm without murmur Lungs clear Abdomen is soft Extremities no cyanosis clubbing or edema Data 05/28/23 03:59 05/28/23 03:59 A&P Assessment and plan (1) Acute non-ST elevation myocardial infarction (NSTEMI): Patient presented with non-ST ST elevation myocardial infarction Angiogram was performed this morning demonstrated significant disease. 2 stents were placed, and the LAD after atherectomy Continue aspirin, Plavix, beta-alyson, statin Close follow-up of lab work tomorrow with CBC and CMP Close follow-up of angiogram site Await echocardiogram (2) Coronary artery disease: See above Plan Hypertension, continue the patient's lisinopril Full code Directly postoperative angiogram, received significant heparin. Reevaluate if stays tomorrow further DVT prophylaxis will need to be reinitiated. Attestations 2 Medical Necessity Statement*: Needs for close monitoring following coronary artery stent placement Diagnoses Acute non-ST elevation myocardial infarction (NSTEMI) I21.4 Coronary artery disease I25.10 Time Spent (min) 24
[2023-05-28] MEDS: hyDRALAzine 20 mg/mL INJ 1 mL 10 MG IVP (14:51)
--- NOTE | 2023-05-28 16:44 | PC.NURSE ---
Dr. Truong rounded on patient and ordered metoprolol 25 mg now and then change to 50 mg BID. Order entered.
[2023-05-28] MEDS: metoprolol tartrate 25 mg Tablet PO (16:48)
[2023-05-28] MEDS: ALPRAZolam 0.5 mg Tablet 0.25 MG PO (16:57)
[2023-05-28] MEDS: metoprolol tartrate 50 mg Tablet PO (20:50)
[2023-05-29] VITALS (41 sets, daily range): BP systolic 139–173; BP diastolic 92–114; PULSE 86–111; RESP 17–39; TEMP 36.5–37.2; O2SAT 91–97
[2023-05-29 03:17] LABS: Basophils % 0.3 %; Eosinophils # 0.1 10^3/uL (0.0-0.8); Eosinophils % 1.6 %; Lymphocytes # 0.9 10^3/uL (0.8-4.8); Lymphocytes % 10.6 %; Mean Corpuscular Hemoglobin 29.4 pg (27-33); Mean Platelet Volume 9.9 fL (7.4-10.4); Monocytes # 0.8 10^3/uL (0.2-0.9); Monocytes % 9.4 %; Neutrophils % 77.7 %; Nucleated Red Blood Cells % 0 %; Platelet Count 306 10^3/cmm (157-399); Red Blood Count 4.83 10^6/uL (3.85-5.65); Red Cell Distribution Width 12.7 % (12.1-15.1); White Blood Count 8.89 10^3/uL (3.29-11.43)
[2023-05-29 03:38] LABS: Alanine Aminotransferase 15 U/L (0-33); Albumin Level 3.9 g/dL (3.5-5.2); Alkaline Phosphatase 66 U/L (35-105); Aspartate Amino Transferase 23 U/L (0-32); Blood Urea Nitrogen 12 mg/dL (6-20); Calcium 9.3 mg/dL (8.5-10.5); Carbon Dioxide 20 mmol/L (22-29); Chloride 104 mmol/L (98-107); Creatinine Clr Calc Pharmacy 146.4867; Globulin 3.9 g/dL (1.3-4.6); Glomerular Filtration Rate 106.7 mL/min (90-130); Glucose 112 mg/dL (65-115); Osmolality Calculated 287 mOsm/kg (285-295); Sodium 138 mmol/L (136-145); Total Bilirubin 0.6 mg/dL (0.15-1.2); Total Protein 7.8 g/dL (6.6-8.7)
--- NOTE | 2023-05-29 06:53 | PM.PN ---
Subjective Subjective: Patient is doing well. No chest pain. Vitals/I&O/Wt Last Vital Signs Temp 98.9 F 05/29/23 04:00 Pulse 91 05/29/23 05:51 Resp 23 H 05/29/23 04:00 BP 139/97 05/29/23 04:00 Pulse Ox 93 05/29/23 04:00 O2 Del Method Room Air 05/29/23 04:00 05/28/23 05/28/23 05/29/23 14:59 22:59 06:59 Intake Total 120 / 120 480 / 600 Output Total 0 / 0 Balance 120 / 120 480 / 600 Weight last 48 hrs Weight 266 lb 6.4 oz Weight 265 lb 2 oz Weight 265 lb 8 oz Weight 247 lb Physical Exam Narrative: GENERAL: Patient is alert, awake and oriented x3. [] NECK: No jugular vein distension. [] HEENT: No cyanosis. No icterus. No pallor. [] HEART: Regular S1 and S2. No murmur, rub or gallop. [] LUNGS: Clear to auscultate bilaterally. [] CENTRAL NERVOUS SYSTEM: Grossly nonfocal. [] EXTREMITIES: Lower extremities with 1+ edema bilaterally. Data 05/29/23 03:10 05/29/23 03:10 A&P Assessment and plan (1) Acute non-ST elevation myocardial infarction (NSTEMI): (2) Benign essential HTN: Plan Patient was found to have critical proximal and mid LAD stenosis that was heavily calcified. She underwent successful revascularization with arthrectomy and 2 stents. Distal PDA also had severe calcified disease. Small sized vessel supplying small area. Can be treated medically. Dual antiplatelet therapy with aspirin and plavix High intensity statin therapy Uptitrate metoprolol to 75mg BID ECHO shows normal LV systolic function Thank you for involving us with care of this patient. Patient is stable to be discharged from cardiology standpoint. Please call with questions. Attestations Medical Necessity Statement*: Care expected to cross 2 midnights. Coding Level of Care Code Acute Code for [facility] [place] Fwd Diagnoses Acute non-ST elevation myocardial infarction (NSTEMI) I21.4 Benign essential HTN I10
--- NOTE | 2023-05-29 08:14 | P.DS_ITS ---
Discharge Providers Date of Admission: 05/27/23 21:37 Date of Discharge: May 29, 2023 Attending Provider at Admission: Marina Salgado MD Attending Provider at Discharge: Kristofer Kebede MD Primary Care Provider: Aleyda Moralez DO Diagnoses at Discharge Discharge Diagnosis (1) Acute non-ST elevation myocardial infarction (NSTEMI): Status: Acute (2) Benign essential HTN: Status: Acute Reason for Visit Reason for Visit: Sob chest pressure Hospital Course Hospital Course Ayanna is a 48-year-old white female who presented to the emergency department with concerns of chest discomfort. Troponin was elevated, consistent with a non-ST elevation myocardial infarction. She was placed on anticoagulation, statin, beta-alyson, aspirin, and Plavix. Cardiology consultation was obtained and she went to the angiogram lab on May 27. There coronary artery disease was found, and she received 2 drug-eluting stents to the LAD. PDA also had a narrowing, and cardiology recommended this to be treated medically. During her hospital stay uptitration of metoprolol recurred. She also continued on her home lisinopril. By the time of discharge she was chest pain-free. Angiogram sites demonstrated no significant hematoma, and it was thought she could discharge home with usual restrictions. She was given an opportunity ask questions and agreed with the plan. Risks and benefits of medicine were discussed. She also received an echocardiogram, which showed overall preserved EF. Physical Exam Narrative: General exam no distress Neck is supple Cardiovascular regular rate and rhythm, no murmur Lungs clear Abdomen is soft Extremities no cyanosis, edema, right radial and right groin wrist site without significant hematoma. Discharge Data Studies Completed and Pending Completed Studies During Hospitalization Category Date Time Status CV. echo complete* [id number] Routine Ultrasound 05/28/23 09:00 Completed Pending at discharge Category Date Time Status [employer] request for service Routine Exams 05/28/23 07:21 Taken Platelet Count Q2D Lab 05/30/23 04:00 Ordered Platelet Count Q2D Lab 06/01/23 04:00 Ordered Laboratory Results WBC 8.89 10^3/uL (3.29-11.43) 05/29/23 03:10 RBC 4.83 10^6/uL (3.85-5.65) 05/29/23 03:10 Hgb 14.20 g/dL (11.27-16.99) 05/29/23 03:10 Hct 43.0 % (36-47) 05/29/23 03:10 MCV 89.0 fl (85-98) 05/29/23 03:10 MCH 29.4 pg (27-33) 05/29/23 03:10 MCHC 33.0 g/dL (30-55) 05/29/23 03:10 RDW 12.7 % (12.1-15.1) 05/29/23 03:10 Plt Count 306 10^3/cmm (157-399) 05/29/23 03:10 MPV 9.9 fL (7.4-10.4) 05/29/23 03:10 Neut % (Auto) 77.7 % 05/29/23 03:10 Lymph % (Auto) 10.6 % 05/29/23 03:10 Miner % (Auto) 9.4 % 05/29/23 03:10 Eos % (Auto) 1.6 % 05/29/23 03:10 Baso % (Auto) 0.3 % 05/29/23 03:10 Neut # (Auto) 6.90 10^3/uL (1.8-7.7) 05/29/23 03:10 Lymph # (Auto) 0.9 10^3/uL (0.8-4.8) 05/29/23 03:10 Miner # (Auto) 0.8 10^3/uL (0.2-0.9) 05/29/23 03:10 Eos # (Auto) 0.1 10^3/uL (0.0-0.8) 05/29/23 03:10 Baso # (Auto) 0.0 10^3/uL (0.0-0.1) 05/29/23 03:10 Nucleated RBC % (auto) 0 % 05/29/23 03:10 Nucleated RBCs # 0.0 /100WBC 05/29/23 03:10 APTT 56.4 SECONDS (23.9-36.7) H 05/28/23 03:59 D-Dimer 0.54 ug/mLFEU (0-0.59) 05/27/23 15:39 Sodium 138 mmol/L (136-145) 05/29/23 03:10 Potassium 4.0 mmol/L (3.5-5.1) 05/29/23 03:10 Chloride 104 mmol/L (98-107) 05/29/23 03:10 Carbon Dioxide 20 mmol/L (22-29) L 05/29/23 03:10 Anion Gap 18.0 (5-19) 05/29/23 03:10 BUN 12 mg/dL (6-20) 05/29/23 03:10 Creatinine 0.6 mg/dL (0.5-0.9) 05/29/23 03:10 GFR Calculation 106.7 mL/min (90-130) 05/29/23 03:10 Glucose 112 mg/dL (65-115) 05/29/23 03:10 Estimat Average Glucose 111 05/27/23 18:37 Hemoglobin A1c 5.5 % (4.0-6.0) 05/27/23 18:37 Calculated Osmolality 287 mOsm/kg (285-295) 05/29/23 03:10 Calcium 9.3 mg/dL (8.5-10.5) 05/29/23 03:10 Phosphorus 4.8 mg/dL (2.5-4.5) H 05/28/23 03:59 Magnesium 2.2 mg/dL (1.7-2.3) 05/28/23 03:59 Total Bilirubin 0.6 mg/dL (0.15-1.2) 05/29/23 03:10 AST 23 U/L (0-32) 05/29/23 03:10 ALT 15 U/L (0-33) 05/29/23 03:10 Alkaline Phosphatase 66 U/L (35-105) 05/29/23 03:10 Troponin T Baseline 32 ng/L (0-10) H 05/27/23 18:37 Troponin T 120 Minute 46.46 ng/L (0-10) H 05/27/23 20:34 Delta Troponin T 14.46 ABS# (0-10) H* 05/27/23 20:34 Troponin T Hi Sens 6Hr 56.29 ng/L (0-10) H 05/28/23 01:35 Troponin T Hi Sens 6Hr Delta 24.29 ng/L (0-12) H* 05/28/23 01:35 NT-Pro-B Natriuret Pep 108 pg/mL (0-125) 05/27/23 18:37 Total Protein 7.8 g/dL (6.6-8.7) 05/29/23 03:10 Albumin 3.9 g/dL (3.5-5.2) 05/29/23 03:10 Globulin 3.9 g/dL (1.3-4.6) 05/29/23 03:10 Vitamin B12 222 pg/mL (232-1245) L 05/27/23 18:37 TSH 2.13 uIU/mL (0.27-4.20) 05/27/23 18:37 Vitals Last Vital Signs Temp 98.9 F 05/29/23 04:00 Pulse 91 05/29/23 05:51 Resp 23 H 05/29/23 04:00 BP 139/97 05/29/23 04:00 Pulse Ox 93 05/29/23 04:00 O2 Del Method Room Air 05/29/23 04:00 Discharge Plan Discharge Patient Disposition: Home Condition: Stable Prescriptions: New aspirin 81 mg Tablet,Delayed Release (Dr/Ec) 81 mg PO DAILY Qty: 90 0RF metoprolol tartrate 50 mg Tablet 50 mg PO BID@0900,2100 Qty: 180 3RF atorvastatin 40 mg Tablet 80 mg PO DAILY Qty: 180 3RF clopidogrel 75 mg Tablet 75 mg PO DAILY Qty: 90 3RF nitroglycerin 0.4 mg tablet, sublingual 0.4 mg sublingual Q5M PRN (Reason: chest pain) Qty: 20 0RF Rx Instructions: do not exceed 3 doses per episode Continued sumatriptan succinate [Imitrex] 100 mg tablet See Rx Instructions PO .COMPLEX Qty: 9 0RF Rx Instructions: take 1 tab at onset of headache; if no relief, may repeat 1 tab after at least 2 hrs; max = 2 tabs/24 hrs PO lisinopril 10 mg tablet 10 mg PO DAILY Qty: 90 1RF Discharge Orders: Discharge Order (Routine); Ordered 05/29/23 Ordered By: Kristofer Kebede Referrals: Aleyda Moralez DO [Primary Care Provider] - 06/14/23 1:30 pm Reyna Malik FNP [Nurse Practitioner] - 06/12/23 1:00 pm Discharge Diet: Cardiac Discharge Activity: Increase activity as tolerated Patient Instructions: Metoprolol (By mouth) (Lopressor, Toprol XL), Aspirin (By mouth), Atorvastatin (By mouth), Clopidogrel (By mouth) (Plavix), Coronary Artery Disease (DC), Coronary Angioplasty (DC), Opioid Safety, Post Angiogram Home Care Instructions Activity Restrictions/Additional Instructions: Take all medicine as prescribed Follow-up with primary care provider as scheduled, as well as cardiology Return for any concerns Follow instructions post cath Discharge Attestations Time Spent in Discharge Care*: greater than 30 min Quality Metrics Clinical Quality Measures [ Acute Myocardial Infaction { Clinical Trial Participant: No; Contraindication to aspirin: None; Aspirin prescribed; Contraindication to statin: None; Statin prescribed; Contraindication to PCI: None; PCI performed;}] Coding Level of Care Code Acute Code for g Fwd Diagnoses Acute non-ST elevation myocardial infarction (NSTEMI) I21.4 Benign essential HTN I10
[2023-05-29] MEDS: lisinopril 10 mg Tablet PO (09:17)
[2023-05-29] MEDS: atorvastatin 40 mg Tablet 80 MG PO (09:17)
[2023-05-29] MEDS: clopidogrel 75 mg Tablet PO (09:18)
[2023-05-29] MEDS: aspirin 81 mg EC Tablet PO (09:18)
[2023-05-29] MEDS: metoprolol tartrate 50 mg Tablet PO (09:18)
== END 2023-05-29 09:33 | disposition home or self-care (01) | DRG 322 ==
LOC: ER 22:23 → CSU 23:23 → MEDSURG 05-28 00:27 → CSU 05-28 10:00
PROVIDERS: Internal Medicine; Admitting Provider Internal Medicine; Emergency Provider Internal Medicine; PCP Family Medicine; Visit Provider Internal Medicine
PROC: 027035Z Dilation of Coronary Artery, One Artery with Two Drug-eluting Intraluminal Devices, Percutaneous Approach (ICD-10-PCS; principal; 2023-05-28 07:30)
PROC: 027035Z Dilation of Coronary Artery, One Artery with Two Drug-eluting Intraluminal Devices, Percutaneous Approach (ICD-10-PCS; 2023-05-28 07:30)
DX: I21.4 Non-ST elevation (NSTEMI) myocardial infarction (principal); E78.00 Pure hypercholesterolemia, unspecified; I10 Essential (primary) hypertension; F43.10 Post-traumatic stress disorder, unspecified; G43.829 Menstrual migraine, not intractable, without status migrainosus
CPT/HCPCS: 36415; 80048; 80053; 82607; 83036; 83735; 83880; 84100; 84443; 84484; 85025; 85347; 85378; 85730; 92978; 93005; 93306; 93458; 96361; 96365; 96366; 96367; 96375; 96376; 99152; 99153; 99285; C1724; C1725; C1753; C1760; C1769; C1874; C1887; C1894; C9602; G0269; J0360; J1200; J1644; J2060; J2250; J3010; J3490; J7030; Q9967

== ENCOUNTER → 2023-06-12 13:52 | Outpatient (BNVA) | payer OTHER, SELFPAY | PROVIDERS: PCP Family Medicine; Visit Provider Nurse Practitioner Family | DX: I25.10 Atherosclerotic heart disease of native coronary artery without angina pectoris (principal); Z09 Encounter for follow-up examination after completed treatment for conditions other than malignant neoplasm | CPT/HCPCS: 36415; 80048 ==

== ENCOUNTER 2023-11-13 09:08 | Outpatient (CLI) | payer OTHER, SELFPAY ==
--- NOTE | 2023-11-13 09:30 | MM_ITS ---
WS: [id number] DIAGNOSTIC RIGHT DIGITAL TOMOSYNTHESIS MAMMOGRAPHY WITH CAD. HISTORY: Follow-up calcifications. COMPARISON: 05/07/2023, 03/06/2023, 08/29/2005 Technique: CC, MLO and ML views. Magnification views. Breast composition: There are scattered areas of fibroglandular density. The dense coarse cluster of calcifications in the posterior medial RIGHT breast are stable. There is been no progression. No development of a soft tissue mass. The remaining breast demonstrates a few sc attered benign calcifications. MM/[place] [id number] IMPRESSION: BI-RADS: 3 - Probably Benign. FOLLOW UP: 6 Month Follow-up Recommend return to annual screening mammography. Screening mammogram should be performed in May 2024.
== END 2023-11-13 09:09 | disposition home or self-care (01) ==
LOC: RAD 09:08
PROVIDERS: PCP Family Medicine; Visit Provider Family Medicine
DX: N63.10 Unspecified lump in the right breast, unspecified quadrant (principal); R92.323 Mammographic fibroglandular density, bilateral breasts; R92.1 Mammographic calcification found on diagnostic imaging of breast
CPT/HCPCS: 77061; G0279

== ENCOUNTER → 2024-01-11 08:08 | Outpatient (BNVA) | payer OTHER, SELFPAY | PROVIDERS: PCP Family Medicine; Visit Provider Family Medicine | DX: I25.10 Atherosclerotic heart disease of native coronary artery without angina pectoris (principal) | CPT/HCPCS: 80053; 80061 ==

== ENCOUNTER 2024-05-15 07:39 | Outpatient (CLI) | payer OTHER, SELFPAY ==
--- NOTE | 2024-05-15 08:00 | MM_ITS ---
WS: [id number] BILATERAL 3D TOMOSYNTHESIS DIGITAL SCREENING MAMMOGRAPHY WITH CAD CLINICAL INFORMATION: Screening HISTORY: Screening mammogram. No current complaints. COMPARISON: 2023 TECHNIQUE: Bilateral CC and MLO views. FINDINGS: Scattered fibroglandular densities bilaterally. No suspicious focal mass, asymmetry, calcifications, or architectural distortion. No evidence of malignancy. Previously described calcifications are stable. Vascular calcifications. MM/MM scr tomosynthesis [id number] IMPRESSION: DENSITY: There are scattered areas of fibroglandular density. BI-RADS: 2 - Benign. FOLLOW UP: 1 Year Follow-up Recommend return to annual screening mammography.
== END 2024-05-15 07:40 | disposition home or self-care (01) ==
PROVIDERS: PCP Family Medicine; Visit Provider Family Medicine
DX: Z12.31 Encounter for screening mammogram for malignant neoplasm of breast (principal); R92.323 Mammographic fibroglandular density, bilateral breasts; R92.1 Mammographic calcification found on diagnostic imaging of breast
CPT/HCPCS: 77063; 77067

== ENCOUNTER 2024-09-16 22:15 | Emergency (ER) | payer OTHER, SELFPAY ==
[2024-09-16 22:32] VITALS: BP 157/107; PULSE 86; RESP 18; TEMP 36.8; O2SAT 99; BMI 38.2
--- NOTE | 2024-09-17 | CTR_ITS ---
PROCEDURE INFORMATION: Exam: CTA Abdomen and Pelvis With Contrast Exam date and time: 09/17/2024 12:16 AM Age: 49 years old Clinical indication: Condition or disease; Other: Gi bleed; Additional info: Acute low gi bleed TECHNIQUE: Imaging protocol: Computed tomographic angiography of the abdomen and pelvis with contrast. Exam focused on the arteries. 3D rendering (Not supervised by radiologist): MIP and/or 3D reconstructed images were created by the technologist. Radiation optimization: All CT scans at this facility use at least one of these dose optimization techniques: automated exposure control; mA and/or kV adjustment per patient size (includes targeted exams where dose is matched to clinical indication); or iterative reconstruction. Contrast material: OMNI 350; Contrast volume: 100 ml; Contrast route: INTRAVENOUS (IV); COMPARISON: CT kidney stone [id number] 02/01/2018 4:36 PM RADIATION DOSE METRICS: Total DLP (mGy-cm): 2706.4 FINDINGS: Diaphragm: Small hiatal hernia. Aorta: No aortic aneurysm. No aortic dissection. Celiac trunk and mesenteric arteries: No occlusion or significant stenosis. Renal arteries: Right renal artery 11 mm apparent aneurysm, series 7, image 85 at the renal hilum is likely chronic. Right iliac arteries: No occlusion or significant stenosis. Left iliac arteries: No occlusion or significant stenosis. Liver: No mass. Gallbladder and biliary ducts: Unremarkable. No calcified stones. No ductal dilation. Pancreas: Unremarkable. No mass. No ductal dilation. Spleen: Unremarkable. No splenomegaly. Adrenal glands: Unremarkable. No mass. Kidneys and ureters: Bilateral renal cysts, negative for follow-up advised. Stomach and bowel: Diverticulosis without diverticulitis. Diverticulosis without diverticulitis. Appendix: No evidence of appendicitis. Intraperitoneal space: Unremarkable. No free air. No significant fluid collection. Lymph nodes: Unremarkable. No enlarged lymph nodes. Urinary bladder: Unremarkable. No mass. Reproductive: Bilateral probable follicular ovarian cysts measuring up to 0.5 cm on the left and 2.6 cm on the right. Bones/joints: No acute fracture. Soft tissues: Moderate umbilical hernia containing omentum. CT/CT angio abdomen pelvis [id number] IMPRESSION: 1. Negative for contrast extravasation in the bowel to indicate a source of gastrointestinal bleeding. 2. Bilateral renal cysts, negative for follow-up advised. 3. Moderate umbilical hernia containing omentum. 4. Diverticulosis without diverticulitis. 5. Bilateral probable follicular ovarian cysts measuring up to 0.5 cm on the left and 2.6 cm on the right. 6. Small hiatal hernia. 7. Diverticulosis without diverticulitis. 8. Right renal artery 11 mm apparent aneurysm, series 7, image 85 at the renal hilum is likely chronic.
[2024-09-17 00:04] VITALS: BP 121/70; PULSE 68; O2SAT 98
[2024-09-17] MEDS: iohexol 350 mg/mL 500 mL Btl (per mL) IV (00:18)
[2024-09-17 00:24] LABS: Hematocrit 38.0 % (36-47); Hemoglobin 12.70 g/dL (11.27-16.99); Mean Corpuscular HGB Conc 33.4 g/dL (30-55); Mean Corpuscular Hemoglobin 29.1 pg (27-33); Mean Corpuscular Volume 87.2 fl (85-98); Nucleated Red Blood Cells % 0 %; Platelet Count 250 10^3/cmm (157-399); Red Blood Count 4.36 10^6/uL (3.85-5.65); White Blood Count 5.71 10^3/uL (3.29-11.43)
[2024-09-17 00:42] LABS: Alanine Aminotransferase 8 U/L (0-33); Albumin Level 4.0 g/dL (3.5-5.2); Alkaline Phosphatase 62 U/L (35-105); Anion Gap 15.7 (5-19); Aspartate Amino Transferase 10 U/L (0-32); Blood Urea Nitrogen 13 mg/dL (6-20); Calcium 9.6 mg/dL (8.5-10.5); Carbon Dioxide 23 mmol/L (22-29); Chloride 105 mmol/L (98-107); Creatinine Clr Calc Pharmacy 98.4069; Globulin 3.5 g/dL (1.3-4.6); Glucose 96 mg/dL (65-115); Osmolality Calculated 290 mOsm/kg (285-295); Potassium 3.7 mmol/L (3.5-5.1); Sodium 140 mmol/L (136-145); Total Protein 7.5 g/dL (6.6-8.7)
[2024-09-17 01:24] VITALS: BP 137/89; PULSE 72; O2SAT 98
[2024-09-17 02:28] VITALS: BP 140/114; PULSE 82; O2SAT 98
--- NOTE | 2024-09-17 05:22 | ED_ITS ---
HPI - GI Bleed 2 General: Chief complaint: GI Bleed Stated complaint: Pooping Blood Time Seen by Provider: 09/16/24 22:54 History of Present Illness: Patient is a generally well-appearing 49-year-old female with history of myocardial infarction treated with two coronary stents and currently on Plavix reports a first-time episode of brisk rectal bleeding earlier today. Patient initially thought menstrual flow had started but noted a ?big gush? of blood in the toilet followed by further passage with wiping. Described the sensation as sudden, similar to diarrhea, with mild bloating now. Last week noted episodes of low blood pressure accompanied by vague abdominal upset. Denies fever or vomiting; endorses occasional diarrhea with prior migraines and had loose stool last Sunday. No prior colonoscopy despite family history of colon cancer (father). No known history of diverticulitis, gallbladder, appendix, or gynecologic surgery. Currently without abdominal pain other than bloating. No prior episodes of gastrointestinal bleed. Related Data Previous Rx's ?Medication ?Instructions ?Recorded nitroglycerin 0.4 mg sublingual See Rx Instructions .R oute 02/28/24 tablet .COMPLEX #30 tabs sumatriptan succinate 100 mg See Rx Instructions PO .C OMPLEX #9 03/11/24 tablet (Imitrex) tabs bupropion HCl 150 mg 24 hr tablet, See Rx Instructions .Route 07/01/24 extended release .COMPLEX #30 tabs Held on 07/15/24. Instructions: Doctor's Order aspirin 81 mg tablet,delayed See Rx Instructions .Rout e 07/15/24 release .COMPLEX #90 tabs atorvastatin 80 mg tablet See Rx Instructions .Route 0 07/15/24 .COMPLEX #90 tabs cetirizine 10 mg tablet 10 mg PO DAILY PRN allergy 0 07/15/24 symptoms #90 tabs clopidogrel 75 mg tablet See Rx Instructions .Route 0 07/15/24 .COMPLEX #90 tabs lisinopril 10 mg tablet 10 mg PO DAILY #90 tabs 07/03 05/27 metoprolol tartrate 50 mg tablet See Rx Instructions . Route 07/15/24 .COMPLEX #180 tabs ondansetron 4 mg disintegrating 4 mg PO Q8H PRN nausea and 07/15/24 tablet vomiting #10 tabs Allergies Allergy/AdvReac Type Severity Reaction Status Date / Time No Known Allergies Allergy Verified 09/11/24 09:43 PFS ED 2 PFS: Medical History (Updated 09/17/24 @ 01:48 by Sanford Heaton MD) Low vitamin B12 level Dyslipidemia Depression PTSD (post-traumatic stress disorder) Coronary artery disease Benign essential HTN Migraine headache Acute non-ST elevation myocardial infarction (NSTEMI) Eczema History of renal stone x 7 Surgical History Hx of hemorrhoidectomy History of myomectomy History of delivery x 3 Family History Grandfather Diabetes mellitus, type 2 Heart disease Hypertension Grandmother Heart disease Hypertension Father , 70 Colon cancer Mother Diabetes Social History Smoking and tobacco/nicotine status: never used tobacco/nicotine Alcohol intake: never Substance/Drug Use: never Household members: none Housing: House Marital status: / Number of children: 3 Highest education level completed: Associate Degree: Occupational, Technical, Vocational Program Current occupational status: employed Current occupation: [employer] Marjorie/Oriental Orthodox: Kira Special marjorie needs: No Agree to transfusion: Yes Physical Exam 2 Const: COMMON NORMALS: no acute distress, patient oriented x3 and alert HENMT: COMMON NORMALS: normocephalic and atraumatic HEAD & SCALP: n ormocephalic and atraumatic Eye: COMMON NORMALS: Equal, round and reactive pupils present, EOMs intact bilaterally and no scleral icterus PUPIL: Yes Equal, round and reactive pupils present Resp: COMMON NORMALS: normal respiratory effort and No retractions Cardio: COMMON NORMALS: regular rate, regular rhythm and No murmurs present (Cardio) RATE: regular rate RHYTHM: regular rhythm GI: COMMON NORMALS: Normal to inspection, nondistended, normoactive bowel sounds present, Soft to palpation and non-tender PALPATION: Yes Soft to palpation OTHER: No active bleed in her rectum. Neuro: COMMON NORMALS: patient oriented x3 SENSORIUM/ORIENTATION: Yes alert Skin: COMMON NORMALS: no rashes or lesions noted GENERAL SKIN EXAM: no rashes or lesions noted Course 2 Vital Signs: Vital signs: Vital Signs Temperature 98.2 F 09/16/24 22:32 Pulse Rate 82 09/17/24 02:28 Respiratory Rate 18 09/16/24 22:32 Blood Pressure 140/114 09/17/24 02:28 Pulse Oximetry 98 09/17/24 02:28 Oxygen Delivery Me thod Room Air 09/16/24 22:32 MDM - GI Bleed Medical Decision Making In summary, patient is a generally well-appearing 49-year-old female seen for lower GI bleed. Hemoglobin is stable. She has gone to the restroom several times and had no further rectal bleeding. Hemoglobin is stable. CTA of the abdomen does not show evidence of acute bleed or blush or active ongoing bleeding. I offered her transfer to another facility with GI consultation capabilities but she graciously declines wishing to go home. I think this is reasonable. She knows that she is always welcome back in emergency department if symptoms are worse, but also that she will require transfer to [facility] to obtain expedited colonoscopy. Lab Data 09/17/24 00:00 09/17/24 00:00 Radiology Impressions Abdomen/Pelvis CTA 09/17/24 00:00 IMPRESSION: 1. Negative for contrast extravasation in the bowel to indicate a source of gastrointestinal bleeding. 2. Bilateral renal cysts, negative for follow-up advised. 3. Moderate umbilical hernia containing omentum. 4. Diverticulosis without diverticulitis. 5. Bilateral probable follicular ovarian cysts measuring up to 0.5 cm on the left and 2.6 cm on the right. 6. Small hiatal hernia. 7. Diverticulosis without diverticulitis. 8. Right renal artery 11 mm apparent aneurysm, series 7, image 85 at the renal hilum is likely chronic. Laboratory Results WBC 5.71 10^3/uL (3.29-11.43) 09/17/24 00:00 RBC 4.36 10^6/uL (3.85-5.65) 09/17/24 00:00 Hgb 12.70 g/dL (11.27-16.99) 09/17/24 00:00 Hct 38.0 % (36-47) 09/17/24 00:00 MCV 87.2 fl (85-98) 09/17/24 00:00 MCH 29.1 pg (27-33) 09/17/24 00:00 MCHC 33.4 g/dL (30-55) 09/17/24 00:00 RDW 12.3 % (12.1-15.1) 09/17/24 00:00 Plt Count 250 10^3/cmm (157-399) 09/17/24 00:00 MPV 10.6 fL (7.4-10.4) H 09/17/24 00:00 Neut % (Auto) 67.8 % 09/17/24 00:00 Lymph % (Auto) 20.1 % 09/17/24 00:00 Grundy % (Auto) 8.9 % 09/17/24 00:00 Eos % (Auto) 2.6 % 09/17/24 00:00 Baso % (Auto) 0.4 % 09/17/24 00:00 Neut # (Auto) 3.87 10^3/uL (1.8-7.7) 09/17/24 00:00 Lymph # (Auto) 1.2 10^3/uL (0.8-4.8) 09/17/24 00:00 [place]undy # (Auto) 0.5 10^3/uL (0.2-0.9) 09/17/24 00:00 Eos # (Auto) 0.2 10^3/uL (0.0-0.8) 09/17/24 00:00 Baso # (Auto) 0.0 10^3/uL (0.0-0.1) 09/17/24 00:00 Nucleated RBC % (auto) 0 % 09/17/24 00:00 Nucleated RBCs # 0.0 /100WBC 09/17/24 00:00 Sodium 140 mmol/L (136-145) 09/17/24 00:00 Potassium 3.7 mmol/L (3.5-5.1) 09/17/24 00:00 Chloride 105 mmol/L (98-107) 09/17/24 00:00 Carbon Dioxide 23 mmol/L (22-29) 09/17/24 00:00 Anion Gap 15.7 (5-19) 09/17/24 00:00 BUN 13 mg/dL (6-20) 09/17/24 00:00 Creatinine 0.8 mg/dL (0.5-0.9) 09/17/24 00:00 GFR Calculation 76.2 mL/min (90-130) L 09/17/24 00:00 Glucose 96 mg/dL (65-115) 09/17/24 00:00 Calculated Osmolality 290 mOsm/kg (285-295) 09/17/24 00:00 Calcium 9.6 mg/dL (8.5-10.5) 09/17/24 00:00 Total Bilirubin 0.4 mg/dL (0.15-1.2) 09/17/24 00:00 AST 10 U/L (0-32) 09/17/24 00:00 ALT 8 U/L (0-33) 09/17/24 00:00 Alkaline Phosphatase 62 U/L (35-105) 09/17/24 00:00 Total Protein 7.5 g/dL (6.6-8.7) 09/17/24 00:00 Albumin 4.0 g/dL (3.5-5.2) 09/17/24 00:00 Globulin 3.5 g/dL (1.3-4.6) 09/17/24 00:00 All radiology interpretation(s) finalized by discharge Discharge Plan Discharge Patient Disposition: Home Clinical Impression: Acute lower GI bleeding Condition: Stable Prescriptions: No Action ondansetron 4 mg tablet,disintegrating 4 mg PO Q8H PRN (Reason: nausea and vomiting) Qty: 10 0RF atorvastatin 80 mg tablet See Rx Instructions .ROUTE .COMPLEX Qty: 90 3RF Dose Instruction: TAKE ONE TABLET BY MOUTH DAILY Rx Instructions: TAKE ONE TABLET BY MOUTH DAILY clopidogrel 75 mg tablet See Rx Instructions .ROUTE .COMPLEX Qty: 90 3RF Dose Instruction: TAKE 1 TABLET BY MOUTH EVERY DAY Rx Instructions: TAKE 1 TABLET BY MOUTH EVERY DAY lisinopril 10 mg tablet 10 mg PO DAILY Qty: 90 3RF metoprolol tartrate 50 mg tablet See Rx Instructions .ROUTE .COMPLEX Qty: 180 3RF Dose Instruction: TAKE 1 TABLET BY MOUTH TWICE DAILY at 9am and 9pm Rx Instructions: TAKE 1 TABLET BY MOUTH TWICE DAILY at 9am and 9pm aspirin 81 mg tablet,delayed release (DR/EC) See Rx Instructions .ROUTE .COMPLEX Qty: 90 3RF Dose Instruction: TAKE 1 TABLET BY MOUTH EVERY DAY Rx Instructions: TAKE 1 TABLET BY MOUTH EVERY DAY cetirizine 10 mg tablet 10 mg PO DAILY PRN (Reason: allergy symptoms) Qty: 90 3RF nitroglycerin 0.4 mg tablet, sublingual See Rx Instructions .ROUTE .COMPLEX Qty: 30 1RF Dose Instruction: DISSOLVE 1 TABLET UNDER THE TONGUE EVERY 5 MINUTES NEEDED FOR CHEST PAIN. DO NOT EXCEED A TOTAL OF 3 DOSES IN 15 MINUTES. Rx Instructions: DISSOLVE 1 TABLET UNDER THE TONGUE EVERY 5 MINUTES NEEDED FOR CHEST PAIN. DO NOT EXCEED A TOTAL OF 3 DOSES IN 15 MINUTES. sumatriptan succinate [Imitrex] 100 mg tablet See Rx Instructions PO .COMPLEX Qty: 9 0RF Rx Instructions: take 1 tab at onset of headache; if no relief, may repeat 1 tab after at least 2 hrs; max = 2 tabs/24 hrs PO bupropion HCl 150 mg tablet extended release 24 hr See Rx Instructions .ROUTE .COMPLEX Qty: 30 0RF Dose Instruction: TAKE 1 TABLET BY MOUTH EVERY MORNING Rx Instructions: TAKE 1 TABLET BY MOUTH EVERY MORNING Discharge Orders: Discharge ED (Routine); Ordered 09/17/24 Ordered By: Sanford Heaton Referrals: Donna Juarez MD [Primary Care Provider, Family Practice] Discharge Diet: Advance as tolerated Discharge Activity: Increase activity as tolerated Patient Instructions: Gastrointestinal Bleeding (ED), Patient Portal & Becky Instructions Activity Restrictions/Additional Instructions: As we discussed, many times, gastrointestinal bleeding will stop spontaneously. Other times, it requires colonoscopy and intervention. You are at high risk for GI bleeding due to taking Plavix. It appears that your bleeding has slowed down and your blood levels are safe at this time. If you have repeat bleeding or especially if you feel lightheaded, short of breath, or chest pain subsequent to additional bleeding, these are all good reasons to return to the emergency department and to consider getting a transfusion and more urgent colonoscopy. Please talk to your primary care doctor about getting a colonoscopy performed as soon as feasible Print Language: [place] Coding Level of Care Code ED Driver Trainer for Joi Kelley
--- NOTE | 2024-09-17 07:45 | DCPLANNER ---
Message sent to General Surgery-In summary, patient is a generally well-appearing 49-year-old female seen for lower GI bleed. Hemoglobin is stable. She has gone to the restroom several times and had no further rectal bleeding. Hemoglobin is stable. CTA of the abdomen does not show evidence of acute bleed or blush or active ongoing bleeding. I offered her transfer to another facility with GI consultation capabilities but she graciously declines wishing to go home. I think this is reasonable. She knows that she is always welcome back in emergency department if symptoms are worse, but also that she will require transfer to [facility] to obtain expedited colonoscopy.
== END 2024-09-17 02:05 | disposition home or self-care (01) ==
PROVIDERS: Emergency Provider Student in an Organized Health Care Education/Training Program; PCP Family Medicine
DX: K62.5 Hemorrhage of anus and rectum (principal); Z79.82 Long term (current) use of aspirin; E78.5 Hyperlipidemia, unspecified; I10 Essential (primary) hypertension
CPT/HCPCS: 74174; 80053; 85025; 99285

== ENCOUNTER → 2025-01-12 08:56 | Outpatient (BNVA) | payer OTHER, SELFPAY | PROVIDERS: PCP Family Medicine; Visit Provider Family Medicine | DX: I10 Essential (primary) hypertension (principal); E78.5 Hyperlipidemia, unspecified; I25.10 Atherosclerotic heart disease of native coronary artery without angina pectoris; G43.829 Menstrual migraine, not intractable, without status migrainosus | CPT/HCPCS: 80053; 80061 ==